=== PATIENT | male | born 1990 | race Caucasian/White ===

== ENCOUNTER 2021-08-22 11:35 | Emergency (ER) | payer MEDICAID ==
[~2021-08-22] VITALS: Ht 172.7 cm; Wt 65.8 kg
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
[2021-08-22] MEDS ORDERED: KETOROLAC TROMETHAMINE INJ 30 MG/ML VIAL IM ONE (12:00)
[2021-08-22] MEDS ORDERED: KETOROLAC TROMETHAMINE INJ 30 MG/ML VIAL ONE (12:02)
--- NOTE | 2021-08-22 12:17 | NUR ---
PT TAKEN TO CT VIA JOHN
[2021-08-22] MEDS ORDERED: TDAP [DIPH/PERTUSSIS/TET] 0.5 ML VIAL IM ONE ×2 (12:27→12:30)
--- NOTE | 2021-08-22 12:54 | NUR ---
CALLED Dickson Peterson [phone] OPTION 2 GABY DE SANTIAGO WILL BE PAGED.
[2021-08-22] MEDS ORDERED: AMOX-430 PO (13:51)
[2021-08-22] MEDS ORDERED: IBUP-1957 PO (13:51)
[2021-08-22] MEDS ORDERED: PSEU120T83 PO (13:51)
--- NOTE | 2021-08-22 14:05 | NUR ---
AGAIN CALLED Dickson Peterson [phone] OPTION 2 GABY [facility] S[facility] WILL BE PAGED.
--- NOTE | 2021-08-22 15:44 | NUR ---
Patient discharged to home in stable condition. Written and verbal after care instructions given. Patient verbalizes understanding of instruction.
[2021-08-22 15:59] VITALS: BP 123/77
== END 2021-08-22 16:01 | disposition home or self-care (01) ==
LOC: ER 11:42
DX: S02.2XXA Fracture of nasal bones, initial encounter for closed fracture (principal); S02.831A Fracture of medial orbital wall, right side, initial encounter for closed fracture; S02.31XA Fracture of orbital floor, right side, initial encounter for closed fracture; Y08.89XA Assault by other specified means, initial encounter; Y93.89 Activity, other specified; Y92.89 Other specified places as the place of occurrence of the external cause; Y99.8 Other external cause status
CPT/HCPCS: 70450; 70486; 90471; 90715; 96372; 99291; A6403; J1885